=== PATIENT | male | born 1975 | race African-American/Black ===

== ENCOUNTER 2017-08-10 15:00 | Emergency (ER) | payer MEDICAID ==
[~2017-08-10] VITALS: Ht 180.3 cm; Wt 95.0 kg
[2017-08-10] MEDS ORDERED: KETOROLAC 60MG/2ML VIAL IM ONE (21:45)
[2017-08-10 23:45] VITALS: BP 125/85
== END 2017-08-10 23:50 | disposition home or self-care (01) ==
LOC: ER 16:14
DX: S52.501A Unspecified fracture of the lower end of right radius, initial encounter for closed fracture (principal); I10 Essential (primary) hypertension; X58.XXXA Exposure to other specified factors, initial encounter; Y93.89 Activity, other specified; Y92.89 Other specified places as the place of occurrence of the external cause; F17.210 Nicotine dependence, cigarettes, uncomplicated
CPT/HCPCS: 29125; 73110; 99284; Z7610; J1885